=== PATIENT | female | born 1970 | race Caucasian/White ===

== ENCOUNTER 2018-05-26 16:15 | Emergency (ER) | payer OTHER ==
[2018-05-26 16:48] VITALS: BMI 27.3
--- NOTE | 2018-05-26 16:49 | PDOC ---
Rapid Medical Evaluation Time Seen by Provider: 05/26/18 16:43 Medical Evaluation: Allergies Allergy/AdvReac Type Severity Reaction Status Date / Time No Known Allergies Allergy Verified 05/26/18 16:43 05/26/18 16:44 I have performed a brief in-person evaluation of this patient. The patient presents with a chief complaint of: chest pain during inspiration this morning, resolved, sent by PCP for labs Pertinent physical exam findings:none I have ordered the following:labs/ekg/cxr The patient will proceed to the ED for further evaluation. 05/26/18 16:46 Discharge Disposition - Diagnosis Chest pain Qualifiers: Chest pain type: chest pain on breathing Qualified Code(s): R07.1 - Chest pain on breathing; R07.81 - Pleurodynia - Referrals - Patient Instructions - Post Discharge Activity
[2018-05-26 17:27] LABS: HEMATOCRIT 42.1 % (32.4-45.2); HEMOGLOBIN 14.1 GM/dL (10.7-15.3); MCH 27.8 pg (25.7-33.7); MCHC 33.5 g/dl (32.0-36.0); MEAN PLT VOLUME 11.4 fl (7.5-11.1); PLATELET COUNT 170 K/MM3 (134-434); RBC 5.07 M/mm3 (3.60-5.2); RDW 13.8 % (11.6-15.6); WHITE BLOOD COUNT 8.1 K/mm3 (4.0-10.0)
[2018-05-26 17:45] LABS: INR 0.96 (0.82-1.09); PROTHROMBIN TIME (PATIENT) 10.9 SEC (9.7-13.0)
[2018-05-26 17:58] LABS: ANION GAP 7 (8-16); BLOOD UREA NITROGEN 10 mg/dL (7-18); CALCIUM 9.5 mg/dL (8.5-10.1); CHLORIDE 105 mmol/L (98-107); CO2 28 mmol/L (21-32); CREATININE 0.6 mg/dL (0.55-1.02); GLUCOSE,RANDOM 87 mg/dL (74-106); SODIUM 140 mmol/L (136-145)
--- NOTE | 2018-05-26 18:18 | PDOC ---
History of Present Illness - General History Source: Patient Exam Limitations: No Limitations - History of Present Illness Initial Comments: 05/26/18 20:01 The patient is a 47 year old female with no significant past medical history presents to the emergency department with chest pain. The patient reports chest pain, pleuritic in character, since 2:00 pm this afternoon. The patient states she was send in by her PCP for evaluation. The patient reports a similar pain in the past, states she cant recall the diagnosis. Denies long travel. Denies the use of control. Denies fever, chills, cough or a headache. Denies abdominal pain, back pain or neck pain. Denies dysuria, hematuria, frequency or urgency to urinate. Denies nausea, vomiting, diarrhea or constipation. Allergies: NKDA Social history: None reported Surgical history: None reported PCP: Dr. Schwarz <Flor Garduno - Last Filed: 05/26/18 20:01> <Joanie Wesley - Last Filed: 05/26/18 23:28> - General Chief Complaint: Chest Pain Stated Complaint: DIFFICULTY BREATHING Time Seen by Provider: 05/26/18 16:43 Past History <Flor Garduno - Last Filed: 05/26/18 20:01> - Past Medical History COPD: No Other medical history: DENIES. - Suicide/Smoking/Psychosocial Hx Smoking History: Never smoked <Joanie Wesley - Last Filed: 05/26/18 23:28> - Past Medical History Allergies/Adverse Reactions: Allergies Allergy/AdvReac Type Severity Reaction Status Date / Time No Known Allergies Allergy Verified 05/26/18 16:43 Review of Systems - Review of Systems Able to Perform ROS?: Yes Comments:: 05/26/18 18:40 CONSTITUTIONAL: Absent: fever, chills, diaphoresis, generalized weakness, malaise, loss of appetite HEENT: Absent: rhinorrhea, nasal congestion, throat pain, throat swelling, difficulty swallowing, mouth swelling, ear pain, eye pain, visual Changes CARDIOVASCULAR: (+) pleuritic chest pain Absent: syncope, palpitations, irregular heart rate, lightheadedness, peripheral edema RESPIRATORY: Absent: cough, shortness of breath, dyspnea with exertion, orthopnea, wheezing, stridor, hemoptysis GASTROINTESTINAL: Absent: abdominal pain, abdominal distension, nausea, vomiting, diarrhea, constipation, melena, hematochezia GENITOURINARY: Absent: dysuria, frequency, urgency, hesitancy, hematuria, flank pain, genital pain MUSCULOSKELETAL: Absent: myalgia, arthralgia, joint swelling SKIN: Absent: rash, itching, pallor HEMATOLOGIC/IMMUNOLOGIC: Absent: easy bleeding, easy bruising, lymphadenopathy, frequent infections ENDOCRINE: Absent: unexplained weight gain, unexplained weight loss, heat intolerance, cold intolerance NEUROLOGIC: Absent: headache, focal weakness or paresthesias, dizziness, unsteady gait, seizure, mental status changes, bladder or bowel incontinence PSYCHIATRIC: Absent: anxiety, depression, suicidal or homicidal ideation, hallucinations. <Flor Garduno - Last Filed: 05/26/18 20:01> *Physical Exam - Vital Signs Last Vital Signs Temp Pulse Resp BP Pulse Ox 98.2 F 64 19 126/64 98 05/26/18 16:43 05/26/18 16:43 05/26/18 16:43 05/26/18 16:43 05/26/18 16:43 - Physical Exam Comments: 05/26/18 18:41 GENERAL: Well developed, well nourished. Awake and alert. No acute distress. HEENT: Normocephalic, atraumatic. PERRLA, EOMI. No conjunctival pallor. Sclera are non- icteric. Moist mucous membranes. Oropharynx is clear. NECK: Supple. Full ROM. No JVD. Carotid pulses 2+ and symmetric, without bruits. No thyromegaly. No lymphadenopathy. CARDIOVASCULAR: Regular rate and rhythm. No murmurs, rubs, or gallops. Distal pulses are 2+ and symmetric. PULMONARY: No evidence of respiratory distress. Lungs clear to auscultation bilaterally. No wheezing, rales or rhonchi. ABDOMINAL: Soft. Non-tender. Non-distended. No rebound or guarding. No organomegaly. Normoactive bowel sounds. MUSCULOSKELETAL Normal range of motion at all joints. No bony deformities or tenderness. No CVA tenderness. EXTREMITIES: No cyanosis. No clubbing. No edema. No calf tenderness. SKIN: Warm and dry. Normal capillary refill. No rashes. No jaundice. NEUROLOGICAL: Alert, awake, appropriate. Cranial nerves 2-12 intact. No deficits to light touch and temperature in face, upper extremities and lower extremities. No motor deficits in the in face, upper extremities and lower extremities. Normoreflexic in the upper and lower extremities. Normal speech. Toes are down- going bilaterally. Gait is normal without ataxia. PSYCHIATRIC: Cooperative. Good eye contact. Appropriate mood and affect. <Flor Garduno - Last Filed: 05/26/18 20:01> - Vital Signs Last Vital Signs Temp Pulse Resp BP Pulse Ox 98.2 F 64 19 126/64 98 05/26/18 16:43 05/26/18 16:43 05/26/18 16:43 05/26/18 16:43 05/26/18 16:43 <Joanie Wesley - Last Filed: 05/26/18 23:28> Heart Score/ECG Review - ECG Impressions Comment:: 05/26/18 18:39 Sinus Bradycardia w/ vent rate of 59 bpm, [place] interval of 148 ms, QRS duration of 94 ms, QT/QTc 436/431 ms and P-R-T axes of (47)(50)(47). Incomplete right bundle branch block. <Flor Garduno - Last Filed: 05/26/18 20:01> ED Treatment Course - LABORATORY CBC & Chemistry Diagram: 05/26/18 17:13 05/26/18 17:13 - ADDITIONAL ORDERS Additional order review: Laboratory Results 05/26/18 05/26/18 17:13 17:13 PT with INR 10.90 INR 0.96 Sodium 140 Potassium 4.0 Chloride 105 Carbon Dioxide 28 Anion Gap 7 L BUN 10 Creatinine 0.6 Creat Clearance w eGFR > 60 Random Glucose 87 Calcium 9.5 Creatine Kinase 111 Troponin I < 0.02 05/26/18 17:13 RBC 5.07 MCV 83.0 MCHC 33.5 RDW 13.8 MPV 11.4 H <Flor Garduno - Last Filed: 05/26/18 20:01> - LABORATORY CBC & Chemistry Diagram: 05/26/18 17:13 05/26/18 17:13 - ADDITIONAL ORDERS Additional order review: Laboratory Results 05/26/18 05/26/18 17:13 17:13 PT with INR 10.90 INR 0.96 Sodium 140 Potassium 4.0 Chloride 105 Carbon Dioxide 28 Anion Gap 7 L BUN 10 Creatinine 0.6 Creat Clearance w eGFR > 60 Random Glucose 87 Calcium 9.5 Creatine Kinase 111 Troponin I < 0.02 05/26/18 17:13 RBC 5.07 MCV 83.0 MCHC 33.5 RDW 13.8 MPV 11.4 H <Joanie Wesley - Last Filed: 05/26/18 23:28> *DC/Admit/Observation/Transfer - Attestations Scribe Attestion: 05/26/18 18:39 Documentation prepared by Flor Garduno, acting as medical claims examiner for Joanie Wesley MD. <Flor Garduno - Last Filed: 05/26/18 20:01> <Joanie Wesley - Last Filed: 05/26/18 23:28> Diagnosis at time of Disposition: Pleuritic chest pain Dyspnea Qualifiers: Dyspnea type: unspecified Qualified Code(s): R06.00 - Dyspnea, unspecified - Discharge Dispostion Disposition: HOME Condition at time of disposition: Stable - Referrals Referrals: Alycia Schwarz MD [Primary Care Provider] - - Patient Instructions Printed Discharge Instructions: DI for Atypical Chest Pain Additional Instructions: please followup with Dr Schwarz Print Language: SERBIAN - Post Discharge Activity
[2018-05-26] MEDS ORDERED: SODIUM CHLORIDE 1,000 ML IV STA (19:43)
[2018-05-26 22:55] VITALS: BP 120/67; PULSE 72; TEMP 98
--- NOTE | 2018-05-27 12:04 | EKG ---
Test Reason : Blood Pressure : / mmHG Vent. Rate : 059 BPM Atrial Rate : 059 BPM P-R Int : 148 ms QRS Dur : 094 ms QT Int : 436 ms P-R-T Axes : 047 050 047 degrees QTc Int : 431 ms SINUS BRADYCARDIA INCOMPLETE RIGHT BUNDLE BRANCH BLOCK BORDERLINE ECG Confirmed by MD LIEN, CHELSEY ([id number]) on 05/27/2018 12:04:00 PM Referred By: Confirmed By:CHELSEY EMMANUEL MD
== END 2018-05-26 23:35 | disposition home or self-care (01) ==
LOC: JER 16:15
PROC: 3E0337Z Introduction of Electrolytic and Water Balance Substance into Peripheral Vein, Percutaneous Approach (ICD-10-PCS; principal; 2018-05-26)
DX: R07.1 Chest pain on breathing (principal); R07.81 Pleurodynia; R06.00 Dyspnea, unspecified
CPT/HCPCS: 36415; 71046-TC-FY; 71275-TC; 80048; 82550; 84484; 85027; 85379; 85610; 93005; 93010; 96360; 99283-25; J7030